=== PATIENT | female | born 1975 | race Caucasian/White ===

== ENCOUNTER 2023-06-10 00:41 | Day surgery (SDC) | payer BC, SELFPAY ==
[2023-06-01 10:26] VITALS: BMI 26.4
[2023-06-10 08:55] VITALS: BP 131/69; PULSE 77; RESP 18; TEMP 36.6; O2SAT 100; BMI 24.5
[2023-06-10] MEDS: LACTATED RINGERS 1,000 ML 150 ML IV CONT (09:12)
--- NOTE | 2023-06-10 09:46 | PM.HPGS ---
History of Present Illness History of Present Illness Consent: Risks, benefits, and alternatives have been discussed and questions answered. Patient agrees to proceed with procedure. Chief complaint: neoplasm screening Narrative: Britni Arana is a 47 year old female Presents for screening colonoscopy. Patient states her weight and appetite are normal. She has a history of constipation. She avoids fiber as she thinks this contributes to her constipation. She denies any bleeding. She has had no weight loss. Family history noncontributory. Review of Systems Review of Systems: Review of systems noncontributory. FORMERLY [facility], 1928–1983 Past Medical History Medical History Anxiety Constipation Screening mammogram, encounter for Surgical History Surgical History History of bladder suspension procedure (~01/22/11) History of dilation and curettage (02/17/05) hscope d&c/laparoscopy adhesiolysis--adenomyosis,benign proliferative endometrium History of gastrointestinal surgery (~03/24/14) History of gynecologic surgery (01/22/02) I&D vulvar lesion History of laparoscopy (02/17/05) hscope d&c/laparoscopy adhesiolysis--adenomyosis,benign proliferative endometrium History of total abdominal hysterectomy (~07/2006) NICK/rt ovarian bx--subserosal leiomyoma, endocervicitis, hemorrhagic cyst Family History Family History Grandparent Cerebrovascular accident Carcinoma of colon maternal grandmother Acute myocardial infarction paternal grandfather Malignant tumor of ovary paternal grandmother Breast cancer paternal grandmother Mother Family history of gynecological problem Social History Social History Social History: Smoking status: Never smoker Second hand tobacco smoke exposure: No Alcohol intake: current Alcohol use details: occasional few times a year Substance use: never Substance use type: does not use Lack of Transportation: No Lack of Food: Never True Current Housing: I Have Housing Concerned About Future Housing: No Difficulty Paying Gas/Electric Bills: No Difficulty Paying for Meds: No Currently Unemployed: No Education: Decline to Answer Difficulty w/ Childcare or Family Care: No Living arrangements: with family Occupation/Education: occupation 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 Gender identity (if verbalized by the patient): Female Sexual Orientation (if Verbalized by the Patient): Straight or Heterosexual Spiritual care concerns: No Meds Home Medications and Allergies Allergies Allergy/AdvReac Type Severity Reaction Status Date / Time dextromethorphan Allergy Intermediate Dyspnea / Verified 06/10/23 09:02 SOB guaifenesin Allergy Intermediate Dyspnea / Verified 06/10/23 09:02 SOB latex Allergy Intermediate Blister Verified 06/10/23 09:02 Penicillins Allergy Mild Rash Verified 06/10/23 09:02 sulfamethoxazole Allergy Mild HIVES Verified 06/10/23 09:02 trimethoprim Allergy Mild HIVES Verified 06/10/23 09:02 adhesive Allergy Unknown Unknown Verified 06/10/23 09:02 Sulfa (Sulfonamide Allergy Unknown Hives Verified 06/10/23 09:02 Antibiotics) DEXTROMETHORPHAN HBR Allergy Intermediate unknown Uncoded 06/10/23 09:02 SURGICAL TAPE Allergy Intermediate blisters Uncoded 06/10/23 09:02 and hives Vital Signs Vital Signs - 24 hr 06/10/23 08:55 Temperature 97.9 F Pulse Rate 77 Respiratory Rate 18 Blood Pressure 131/69 Pulse Oximetry 100 Oxygen Delivery Room Air Exam Narrative: Physical exam reveals patient to be alert. Vital signs stable. HEENT exam is unremarkable. Patient is anicteric. Lungs are clear to auscultation and percussion. Heart is without mu
[2023-06-10 10:50] VITALS: BP 96/63; PULSE 63; RESP 18; O2SAT 100
[2023-06-10 11:00] VITALS: BP 114/75; PULSE 69; RESP 19; O2SAT 100
[2023-06-10 11:10] VITALS: BP 113/72; PULSE 60; RESP 20; O2SAT 100
== END 2023-06-10 11:16 | disposition home or self-care (01) ==
PROVIDERS: PCP Family Medicine; Visit Provider Internal Medicine Gastroenterology
PROC: 0DJD8ZZ Inspection of Lower Intestinal Tract, Via Natural or Artificial Opening Endoscopic (ICD-10-PCS; CPT 45378; principal; 2023-06-10 10:00)
DX: Z12.11 Encounter for screening for malignant neoplasm of colon (principal); K64.8 Other hemorrhoids; K59.00 Constipation, unspecified
CPT/HCPCS: 45378; J2371; J7120

== ENCOUNTER → 2023-08-23 14:49 | Outpatient (CLI) | payer BC, SELFPAY ==
--- NOTE | ~2023-08-23 | MM_ITS ---
EXAMINATION: MM screening ronen BI w jesus HISTORY: Screening mammogram, family history of breast cancer in her mother. TECHNIQUE: Craniocaudal and mediolateral oblique 3-D tomosynthesis images were obtained and synthetic 2-D images were generated. CAD analysis was submitted and interpreted. COMPARISON: 01/23/2019, 10/14/2017 BREAST PARENCHYMAL COMPOSITION: The breasts are heterogeneously dense, which may obscure small masses . FINDINGS: RIGHT BREAST: There are obscured masses in the middle third of the central breast and in the middle a nd posterior thirds of the outer breast. LEFT BREAST: There are obscured masses in the middle and posterior thirds of the lower-outer breast. IMPRESSION: 1. Obscured bilateral breast masses. 2. Additional mammographic views and possible breast ultrasound are recommended. BI-RADS Category 0: Incomplete: Needs additional imaging evaluation. Reviewed, dictated and finalized at location A. IMPRESSION: 1. Obscured bilateral breast masses. 2. Additional mammographic views and possible breast ultrasound are recommended . BI-RADS Category 0: Incomplete: Needs additional imaging evaluation.
== END ==
PROVIDERS: PCP Obstetrics & Gynecology; Visit Provider Physician Assistant
DX: Z12.31 Encounter for screening mammogram for malignant neoplasm of breast (principal); R92.8 Other abnormal and inconclusive findings on diagnostic imaging of breast
CPT/HCPCS: 77063; 77067

== ENCOUNTER → 2023-09-19 13:49 | Outpatient (CLI) | payer BC, SELFPAY ==
--- NOTE | ~2023-09-19 | MMUS_ITS ---
EXAMINATION: MM diagnostic ronen BI w jesus, US breast BI complete HISTORY: Bilateral breast masses reported on 08/23/2023 screening mammogram TECHNIQUE: Additional 3-D tomosynthesis images of both breasts were performed and synthetic 2-D image s were generated. CAD analysis was submitted and interpreted. High resolution complete bilateral [address] ultrasound examination including all 4 quadrants and subareolar areas was performed. COMPARISON: 08/23/2023, 01/23/2019 bilateral screening mammogram FINDINGS: MAMMOGRAPHIC FINDINGS: Right breast: There are multiple right breast masses measuring up to 13 x 23 mm. Heterogeneously dense stroma parti ally obscures the margins, preventing optimal assessment of solid lesions in particular. Ultrasound e xamination of the complete right breast was performed. No malignant calcification, architectural distortion, skin thickening or retraction is detected. Left breast: 1.4 x 1.8 cm circumscribed opacity is noted in the posterior central left breast. Additional masses may be present but obscured by the heterogeneously dense stroma. Complete left [address] ultrasound examination was performed. No malignant calcification, or architectural distortion, skin thickening or retraction is detected. ULTRASOUND: Right breast: 5:00 2 cm from nipple: Mildly irregular hypoechoic lesion with posterior shadowing, measuring approxi mately 3.6 x 3.7 x 5.2 mm. The irregular margins and posterior shadowing are of concern. Ultrasound-g uided biopsy is recommended. 6:00 3 cm from nipple: 2 x 3 mm cyst 9:00 7 cm from nipple: 11 x 19 x 20 mm simple cyst with through transmission and posterior enhancemen t 10:00 6 cm from nipple: 9 x 5.8 x 8 mm simple cyst with through transmission posterior enhancement Subareolar area: 11 x 17 mm simple cyst with through transmission and posterior enhancement and paolo guous 11 x 14 mm cyst. Left breast: 12:00 subareolar area: 19 x 7 x 19 mm simple cyst 1:00 3 cm from nipple: 10 x 4 x 7.8 mm simple cyst 2:00 3 cm from nipple: 4.6 x 6.6 x 6.3 mm cyst 2:00 6 cm from nipple: 0.8 x 11 mm simple cyst with through transmission posterior enhancement 2:00 7 cm from nipple: Parallel circumscribed 3 x 7.4 mm cyst 5:00 5 cm from nipple: 3.8 x 4.9 mm hypoechoic lesion without internal vascularity or posterior shado wing; this is indeterminate, possibly a cyst or solid lesion. Consider ultrasound-guided aspiration a ttempt with immediate biopsy thereafter if this does not resolve with aspiration. 6:00 5 cm from nipple: 3 mm simple cyst with through transmission posterior enhancement IMPRESSION: 1. 3.6 x 3.7 x 5.2 mm Right breast 5:00 lesion 2 cm from nipple with mildly irregular outline and pos terior shadowing; ultrasound-guided biopsy is recommended 2. 3.8 x 4.9 mm left breast indeterminate hypoechoic lesion; ultrasound-guided biopsy is recommended if this does not resolve initially with ultrasound-guided aspiration attempt BI-RADS category 4, suspicious findings. Reviewed, dictated and finalized at location A. NSING REGISTRATION EXAMINER IMPRESSION: 1. 3.6 x 3.7 x 5.2 mm Right breast 5:00 lesion 2 cm from nipple with mildly irr egular outline and posterior shadowing; ultrasound-guided biopsy is recommended 2. 3.8 x 4.9 mm left breast indeterminate hypoechoic lesion; ultrasound-guided biopsy is recommended if this does not resolve initially with ultrasound-guided aspiration attempt BI-RADS category 4, suspicious findings.
== END ==
PROVIDERS: PCP Obstetrics & Gynecology; Visit Provider Physician Assistant
DX: R92.8 Other abnormal and inconclusive findings on diagnostic imaging of breast (principal)
CPT/HCPCS: 76641; 77062; 77066; G0279

== ENCOUNTER 2023-10-06 12:44 | Outpatient (CLI) | payer BC, SELFPAY ==
--- NOTE | ~2023-10-06 | MR_ITS ---
MR breast BI wo/w con 10/07/2023 08:16 CARE SPECIALIST INDICATION: Follow-up abnormal breast masses seen on recent examination. Palpable lumps in both breas ts. Tenderness of the right breast. Family history of breast cancer. TECHNIQUE: MRI of the breasts perform using standard protocol pre-and post IV contrast with the follo wing sequences: Axial T2 STIR, axial T1, axial vibrant T1 with fat suppression precontrast and multip hasic postcontrast. 14 cc MultiHance administered intravenously. COMPARISON: Diagnostic mammogram and ultrasound dated 09/19/2023 and screening mammograms dated 08/23, 01/23/2019 and 10/14/2017 FINDINGS: Left breast: There are masses of the left breast which are T1 hypointense and T2 hyperinten se, consistent with cysts, largest measuring 1.8 x 0.9 cm. There is a small enhancing mass measuring 6 x 3 x 3 mm in the lower outer quadrant of the left breast, middle third, 5:00 position. This mass i s not identified on T1 precontrast and is hyperintense on T2 STIR image with rapid washout enhancemen t. This likely corresponds to the sonographic abnormality. There is moderate nodular background paren chymal enhancement. No evidence of signal abnormalities in the axillary or internal mammary node dis tributions. RIGHT BREAST: There are multiple right breast masses which are T2 hyperintense and T1 hypointense, co mpatible with cysts. There is rim enhancement, nonspecific. In the lower inner quadrant at 5:00, midd le third there is a cyst with focal thickening and enhancement anteriorly. The enhancement is rapid w ith plateau enhancement. At 1:00 there is a cluster of nodular nonmasslike enhancement in the upper i nner quadrant posteriorly measuring 6 x 3 x 2 mm. The enhancement is medium persistent kinetics. No d efinite enhancing mass is identified in the region of the sonographic abnormality at 5:00, 2 cm from the nipple. There is moderate background parenchymal enhancement. In the right axilla there is a lymp h node with effacement of the fatty hilum measuring 11 x 12 x 9 mm. There is a second lymph node of t he right axilla with effaced hilum measuring 9 mm, nonspecific. IMPRESSION: 1: Right breast: Complex cyst at 5:00, middle third with focal soft tissue thickening anteriorly and abnormal enhancement. Cluster of nodular masslike enhancement at 1:00 in the upper inner quadrant po steriorly measuring 6 x 3 x 2 mm. Borderline sized right axillary lymph nodes with effacement of the fatty hilum. Second look ultrasound of these areas of interest recommended. No abnormally enhancing m ass is identified in the region of the hypoechoic mass at 5:00, 2 cm from the nipple recognized on pr ior ultrasound. Recommend repeat second look ultrasound of this area of interest. BI-RADS Category 0. 2: Left breast: 6 mm mass lower outer quadrant of the left breast, middle third corresponding to the sonographic abnormality seen on prior examination. There is abnormal enhancement. Ultrasound-guided biopsy recommended. BI-RADS Category 4. Reviewed, dictated and finalized at location A. SPECIALIST IMPRESSION: 1: Right breast: Complex cyst at 5:00, middle third with focal soft tissue thi ckening anteriorly and abnormal enhancement. Cluster of nodular masslike enhanc ement at 1:00 in the upper inner quadrant posteriorly measuring 6 x 3 x 2 mm. B orderline sized right axillary lymph nodes with effacement of the fatty hilum. Second look ultrasound of these areas of interest recommended. No abnormally en hancing mass is identified in the region of the hypoechoic mass at 5:00, 2 cm f rom the nipple recognized on prior ultrasound. Recommend repeat second look ult rasound of this area of interest. BI-RADS Category 0. 2: Left breast: 6 mm mass lower outer quadrant of the left breast, middle thir d corresponding to the sonogra
== END 2023-10-06 12:45 | disposition home or self-care (01) ==
PROVIDERS: PCP Family Medicine; Visit Provider Surgery
DX: Z12.31 Encounter for screening mammogram for malignant neoplasm of breast (principal); N63.10 Unspecified lump in the right breast, unspecified quadrant; R92.8 Other abnormal and inconclusive findings on diagnostic imaging of breast
CPT/HCPCS: 77049; A9577; C8908

== ENCOUNTER → 2023-10-14 10:37 | Outpatient (CLI) | payer BC, SELFPAY ==
--- NOTE | ~2023-10-14 | US_ITS ---
US breast RT complete 10/14/2023 11:42 Indication: Follow-up right breast for further evaluation of areas of abnormality seen on recent MRI dated 10/06/2023 Procedure: High-resolution Limited ultrasound of the right breast Comparison: MRI dated 10/06/2023 and diagnostic mammogram and ultrasound dated 09/19/2023 Findings: At 5:00, 2 cm from the nipple there is an oval hypoechoic mass with low level internal echo es, subtle posterior acoustic shadowing, parallel orientation measuring 3 mm. No internal vascularity . At 6:00, 3 cm from the nipple there is a 3 mm cyst. At 9:00, 7 cm from the nipple there is a 1.8 cm simple cyst. At 10:00, 6 cm from the nipple there is a 8 mm cyst. At the areola there are 2 adjacent cysts, largest measuring 1.4 cm. In the 1:00 position in the upper inner quadrant posteriorly there is no sonographic abnormality to correspond to the area of clustered nodular masslike enhancement see n on MRI examination. At the 5:00 position there is no corresponding abnormality to the area of abnor mal masslike enhancement in the lower outer quadrant middle third. Impression: 1: No sonographic correlate to the areas of abnormality seen on recent MRI examination. MRI guided bi opsy recommended for these areas. BI-RADS CATEGORY 4-SUSPICIOUS ABNORMALITY Reviewed, dictated and finalized at location A. UREMENT ASSISTANT Impression: 1: No sonographic correlate to the areas of abnormality seen on recent MRI exam ination. MRI guided biopsy recommended for these areas. BI-RADS CATEGORY 4-SUSPICIOUS ABNORMALITY
== END ==
PROVIDERS: PCP Family Medicine; Referring Provider Obstetrics & Gynecology; Visit Provider Surgery
DX: R92.8 Other abnormal and inconclusive findings on diagnostic imaging of breast (principal)
CPT/HCPCS: 76641

== ENCOUNTER 2025-05-20 15:29 | Outpatient (CLI) | payer OTHER, SELFPAY ==
--- NOTE | ~2025-05-20 | MR_ITS ---
EXAMINATION: MR foot LT wo con DATE: 05/20/2025 16:27 INDICATION: Plantar fascial fibromatosis TECHNIQUE: Magnetic resonance imaging (MRI) of the left mid and hindfoot was performed without intrav enous contrast. Sequences included sagittal, coronal, and axial proton-density weighted fast spin ech o without and with fat saturation. COMPARISON: None. FINDINGS: Medial ankle ligaments: Deep and superficial deltoid ligaments as well as the spring ligament are normal. Lateral ankle ligaments: The anterior and posterior inferior tibiofibular ligaments are normal. The anterior talofibular, calc aneofibular and posterior talofibular ligaments are normal. Tendons: Mild distal Achilles tendinosis without tear. The peroneus longus and brevis tendons are normal. The tibialis anterior and extensor hallucis longus and extensor digitorum longus tendons are normal. The tibialis posterior, flexor digitorum longus and flexor hallucis longus tendons are normal. Plantar fascia: Thickening and increased signal of the central and medial components of the plantar aponeurosis with small plantar calcaneal spur with mild marrow and surrounding soft tissue edema at its calcaneal orig in consistent with moderate plantar fasciitis/enthesitis. No evident plantar fibroma. Bones/other: Bone alignment is normal. Aside from at the posterior calcaneus there is normal bone marrow signal th roughout. No fracture or pathologic marrow replacing process. Joint spaces are normal. Fluid: Moderate plantar fasciitis/enthesitis IMPRESSION: 1. Reviewed, dictated and finalized at location A. IMPRESSION: 1.
== END 2025-05-20 15:30 | disposition home or self-care (01) ==
LOC: MICIMG 15:32
PROVIDERS: PCP Family Medicine; Visit Provider Podiatrist Foot & Ankle Surgery
DX: M72.2 Plantar fascial fibromatosis (principal)
CPT/HCPCS: 73718